=== PATIENT | female | born 1945 | race Caucasian/White ===

== ENCOUNTER → 2016-08-01 | Outpatient (CLI) | payer MEDICARE ==
[~2016-08-01] MED LIST: CELE40TA PO; D 50CAP PO; DOC-8.6T PO; FERR325T PO; HYDR-3713 PO; MECL25CH PO; NADO20TA PO; PLAV75TA38 PO; RANI15TA PO; VITA1DRO PO
[2016-08-01 11:05] LABS: MEAN CORPUSCULAR HEMOGLOBIN 30.7 pg (27.0-33.0); MEAN CORPUSCULAR HGB CONC 33.6 g/dl (32.0-36.5); MEAN CORPUSCULAR VOLUME 91.3 fl (80.0-96.0); RED CELL DISTRIBUTION WIDTH 13.7 % (11.5-14.5); WHITE BLOOD COUNT 3.5 K/mm3 (4.0-10.0)
[2016-08-01 11:26] LABS: ALBUMIN 3.6 GM/DL (3.2-5.2); ALBUMIN/GLOBULIN RATIO 1.03 (1.00-1.93); ALKALINE PHOSPHATASE 86 U/L (45-117); ALT/SGPT 22 U/L (12-78); ANION GAP 6 MEQ/L (8-16); AST/SGOT 25 U/L (15-37); BILIRUBIN,TOTAL 0.9 MG/DL (0.2-1.0); BLOOD UREA NITROGEN 8 MG/DL (7-18); CALCIUM LEVEL 8.4 MG/DL (8.8-10.2); CARBON DIOXIDE LEVEL 28 MEQ/L (21-32); CHLORIDE LEVEL 108 MEQ/L (98-107); CREATININE FOR GFR 0.89 MG/DL (0.55-1.02); GLOMERULAR FILTRATION RATE > 60.0 (>45); GLUCOSE, FASTING 77 MG/DL (80-110); SODIUM LEVEL 142 MEQ/L (136-145); TOTAL PROTEIN 7.1 GM/DL (6.4-8.2)
== END ==
LOC: M LAB 10:45
PROVIDERS: ATTEND Physician Assistant Medical
DX: K74.60 Unspecified cirrhosis of liver (principal)

== ENCOUNTER → 2016-08-08 | Outpatient (CLI) | payer MEDICARE ==
[~2016-08-08] MED LIST changes: +ALEN70SO PO; +FOSA70TA PO; +HYDR10T PO; +NICO14DI20 TD; +POLYPOW9 PO; +VITA1DRO IM; -VITA1DRO PO
--- NOTE | 2016-08-08 09:56 | REP ---
Clinical: Abdominal pain with history of cirrhosis . Technique: Yip scale ultrasound using curved array transducer. Findings: The pancreas is normal in echogenicity and without focal pancreatic lesion identified. The liver demonstrates a coarsened echotexture with nodular contour consistent with cirrhosis as well as a 7 mm hemangioma in the right lobe. The main portal vein measures 1.4 cm diameter suggesting portal venous hypertension. The gallbladder demonstrates 3 mm benign polyp and is otherwise normal without gallstones, wall thickening or pericholecystic fluid. No biliary ductal dilatation is appreciated, and the common bile duct measures 4.7 mm mm diameter. The right kidney is normal in reniform shape without hydronephrosis and measures 10.1 x 6.1 x 3.5 cm with findings to suggest renal vascular disease. No ascites. Impression: 1. Liver compatible with cirrhosis including suspected portal venous hypertension and subcentimeter hemangioma in the right lobe. 2. A 3 mm benign appearing gallbladder polyp. Signed by Moises Morrissey MD 08/08/2016 09:48 A
== END ==
LOC: M RAD 08:23
PROVIDERS: ATTEND Physician Assistant Medical
DX: K74.60 Unspecified cirrhosis of liver (principal); K82.4 Cholesterolosis of gallbladder; D18.00 Hemangioma unspecified site

== ENCOUNTER → 2016-08-09 | Outpatient (CLI) | payer MEDICARE | LOC: M LAB 12:54 | PROVIDERS: ATTEND Physician Assistant Medical | DX: K74.60 Unspecified cirrhosis of liver (principal) ==

== ENCOUNTER → 2016-08-20 | Outpatient (CLI) | payer MEDICARE ==
[~2016-08-20] VITALS: Ht 167.6 cm; Wt 60.8 kg
[~2016-08-20] MED LIST changes: +NS 1,000 ML IV SCH
[2016-08-20 11:32] VITALS: BP 133/60
--- NOTE | 2016-08-20 12:20 | ROOR ---
Patient Name: Nuris Shoemaker Procedure Date: 08/20/2016 12:05 PM Date of : 1945 Age: 70 Room: [facility] Gender: Female Note Status: Finalized Procedure: Upper GI endoscopy Indications: Cirrhosis rule out esophageal varices, Gastric varices, Follow-up of gastric varices Providers: Rafael PICKERING MD Referring MD: DAVONTE SANDERS MD Requesting Provider: Medicines: Monitored Anesthesia Care Complications: No immediate complications. Procedure: Pre-Anesthesia Assessment: - The heart rate, respiratory rate, oxygen saturations, blood pressure, adequacy of pulmonary ventilation, and response to care were monitored throughout the procedure. The Endoscope was introduced through the mouth, and advanced to the second part of duodenum. The upper GI endoscopy was accomplished without difficulty. The patient tolerated the procedure well. Findings: The examined esophagus was normal. Varices with no bleeding were found in the cardia. They were small to medium in largest diameter. The exam of the stomach was otherwise normal. The examined duodenum was normal. Impression: - Normal esophagus. 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 - Stomach is otherwise normal. - Normal examined duodenum. - No specimens collected. Recommendation: - Continue present medications. - Continue Nonselective Betablocker (Propranolol). Rafael Pickering MD Rafael PICKERING MD 08/20/2016 12:19:43 PM This report has been signed electronically. Number of Addenda: 0 Note Initiated On: 08/20/2016 12:05 PM Estimated Blood Loss: Estimated blood loss: none.
--- NOTE | 2016-08-20 12:48 | ROOR ---
Patient Name: Nuris Shoemaker Procedure Date: 08/20/2016 12:06 PM Date of : 1945 Age: 70 Room: [facility] Gender: Female Note Status: Finalized Procedure: Colonoscopy Indications: High risk colon cancer surveillance: Personal history of colonic polyps, Surveillance: History of piecemeal removal adenoma on last colonoscopy (< 3 yrs), Last colonoscopy: June 2015 Providers: Rafael PICKERING MD Referring MD: DAVONTE SANDERS MD Requesting Provider: Medicines: Monitored Anesthesia Care Complications: No immediate complications. Procedure: Pre-Anesthesia Assessment: - The heart rate, respiratory rate, oxygen saturations, blood pressure, adequacy of pulmonary ventilation, and response to care were monitored throughout the procedure. The Colonoscope was introduced through the anus and advanced to the cecum, identified by appendiceal orifice and ileocecal valve. The colonoscopy was performed without difficulty. The patient tolerated the procedure well. The quality of the bowel preparation was fair. Findings: The perianal and digital rectal examinations were normal. Three flat polyps were found in the proximal ascending colon. The polyps were 3 to 5 mm in size. Polyp resection was incomplete due to the polypectomy being technically difficult and complex. Fulguration to ablate the lesion remnants by argon beam at 0.8 liters/minute and 20 mccloud was successful. The exam was otherwise without abnormality. A 8 mm polyp was found in the splenic flexure. The polyp was semi-sessile. The polyp was removed with a hot snare. Resection and retrieval were complete. Impression: - Preparation of the colon was fair. - One 8 mm polyp at the splenic flexure, removed with a hot snare. Resected and retrieved. - Three 3 to 5 mm polyps in the proximal ascending colon. Treated with argon beam coagulation. - The examination was otherwise normal. Recommendation: - Repeat colonoscopy in 3 years for surveillance. Rafael Pickering MD Rafael PICKERING MD 08/20/2016 12:48:13 PM This report has been signed electronically. Number of Addenda: 0 Note Initiated On: 08/20/2016 12:06 PM Estimated Blood Loss: Estimated blood loss: none.
== END | disposition home or self-care (01) ==
LOC: M OPP 10:00
PROVIDERS: ATTEND Internal Medicine Gastroenterology
DX: Z09 Encounter for follow-up examination after completed treatment for conditions other than malignant neoplasm (principal); D12.2 Benign neoplasm of ascending colon; D12.3 Benign neoplasm of transverse colon; Z86.010 Personal history of colon polyps; I86.4 Gastric varices; K74.60 Unspecified cirrhosis of liver; R12 Heartburn; D64.9 Anemia, unspecified; M81.0 Age-related osteoporosis without current pathological fracture; F41.9 Anxiety disorder, unspecified; F32.9 Major depressive disorder, single episode, unspecified; R42 Dizziness and giddiness; Z86.73 Personal history of transient ischemic attack (TIA), and cerebral infarction without residual deficits; Z78.0 Asymptomatic menopausal state; F17.210 Nicotine dependence, cigarettes, uncomplicated; M54.2 Cervicalgia; Z79.899 Other long term (current) drug therapy; Z80.8 Family history of malignant neoplasm of other organs or systems

== ENCOUNTER → 2016-08-29 | Outpatient (CLI) | payer MEDICARE ==
[~2016-08-29] MED LIST changes: +GASTROGRAFIN SOLUTION 30ML (Q9963) As Ordered ONE; +ISOVUE-370 76% 100ML VIAL (Q9967) As Ordered ONE; -NS 1,000 ML IV SCH
--- NOTE | 2016-08-29 15:44 | REP ---
CT of the abdomen, pelvis not included, multiphase imaging for hepatic mass in this patient with cirrhosis: The study is initially performed without IV contrast. This is followed by IV contrast imaging during the arterial phase of enhancement and again during the delayed equilibrium phase of enhancement. Bowel contrast is utilized on all phases. Comparison is 07/13/2014. The evidence of cirrhosis is again identified, as previously with a nodular hepatic contour, splenic an esophageal varices and cannulated umbilical vein, as previously. No ascites is identified. On the delayed equilibrium images there is a faintly visible hypodensity posteriorly in the right lobe of the liver on page 25 measuring 2.0 cm. This is not identified on the other phases of the study, however, occasionally hepatic masses can be quite subtle. Therefore, I would recommend MRI follow-up for further evaluation. There is no biliary duct dilatation. The gallbladder is unremarkable. The spleen is enlarged measuring 12.4 cm craniocaudad. The left lobe of the liver appears hypertrophied. The adrenals and kidneys are unremarkable. The visualized bowel and mesentery are unremarkable. Impression: Questionable 2.0 cm mass in the right lobe of the liver seen on the views only. Therefore, I would recommend MRI follow-up for further evaluation of hepatic mass. Manifestation of cirrhosis and pulmonary hypertension are again noted as described, unchanged. No ascites. No adenopathy. Splenomegaly. Hypertrophied left lobe of the liver. Signed by Santhosh Francois MD 08/29/2016 03:36 P
== END ==
LOC: M RAD 12:49
PROVIDERS: ATTEND Physician Assistant Medical
DX: K74.60 Unspecified cirrhosis of liver (principal); R93.2 Abnormal findings on diagnostic imaging of liver and biliary tract; R16.1 Splenomegaly, not elsewhere classified; R16.0 Hepatomegaly, not elsewhere classified
CPT/HCPCS: 74170; Q9963; Q9967

== ENCOUNTER → 2016-10-03 | Outpatient (CLI) | payer MEDICARE ==
[~2016-10-03] MED LIST changes: -GASTROGRAFIN SOLUTION 30ML (Q9963) As Ordered ONE; -ISOVUE-370 76% 100ML VIAL (Q9967) As Ordered ONE
[2016-10-03 11:08] LABS: BLOOD UREA NITROGEN 12 MG/DL (7-18); CREATININE FOR GFR 0.88 MG/DL (0.55-1.02); GLOMERULAR FILTRATION RATE > 60.0 (>45)
== END ==
LOC: M LAB 10:26
PROVIDERS: ATTEND Physician Assistant Medical
DX: K74.60 Unspecified cirrhosis of liver (principal)

== ENCOUNTER → 2016-10-04 | Outpatient (CLI) | payer MEDICARE ==
--- NOTE | 2016-10-04 13:35 | REP ---
MRI ABDOMEN WITHOUT AND WITH IV CONTRAST: HISTORY: Cirrhosis of the liver. Comparison CT study is from August 29 2016. This showed a questionable 2 cm mass in the right lobe of the liver. MRI TECHNIQUE: Axial and coronal scans were obtained with T1 and T2-weighted sequences including true FISP, spin echo, turbo spin echo, in and out of phase, and sequential dynamically acquired post gadolinium enhanced T1-weighted fat sat 2D gradient echo images. Gadolinium enhancement dose: 12 mL of intravenous ProHance is administered. MRI FINDINGS: Hypertrophy of the left hepatic lobe, micronodular liver contour, dilated portal vein, and left upper quadrant perigastric venous collaterals are seen consistent with the known cirrhosis. Pre-injection and post gadolinium enhanced MR images show no evidence of focal liver lesion. Delayed postcontrast images in the equilibrium phrase show no mass lesion. There is no hypervascular mass in the liver to suggest hepatocellular carcinoma. No abnormalities noted in the gallbladder. Kidneys enhance symmetrically and are morphologically intact. No pancreatic lesion is seen. The spleen is not enlarged. IMPRESSION: Evidence of cirrhosis. No liver mass lesion is visible by MRI scanning. Signed by Chandler Riley MD 10/04/2016 04:59 P
== END ==
LOC: M RAD 08:44
PROVIDERS: ATTEND Physician Assistant Medical
DX: K74.60 Unspecified cirrhosis of liver (principal); R93.3 Abnormal findings on diagnostic imaging of other parts of digestive tract
CPT/HCPCS: 74183; A9576